=== PATIENT | male | born 1935 ===

== ENCOUNTER 2020-09-14 14:47 | Outpatient (RCR) | payer MEDICARE, OTHER, SELFPAY ==
--- NOTE | 2020-09-14 17:06 | ST.OPIE ---
Visit Care Team Role Provider Type Omer Bello MD Attending Provider Non-Staff Family Provider Primary Care Provider Referring Provider Specialty: Medical Address: [address] [place] [address], [place], [place], [facility] Email: Speech-Language Pathology Initial Evaluation [employer]INTAINER Clinical Swallow Evaluation Start: 09/14/20 15:29 Freq: Status: Active Protocol: Document 09/14/20 15:29 ARIELLE (Rec: 09/14/20 16:34 ARIELLE [id number]) Clinical Swallow Evaluation Session Time Visit Start Time 15:30 Visit Stop Time 16:25 Total Visit Minutes 55 Visit Information Visit Number Initial Evaluation Plan of Care Dates 09/14/20 - 12/15/20 Insurance Information Medicare Referral Referring Provider Dr. 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 The pt choked on a pill 3 wks ago and was taken to ER at [place]. Given his medical history, a number of tests were run including ruling out TIA. Since then, the pt underwent Barium Swallow Study at [facility], which revealed normal esophageal function. The pt feels he is doing better but still occasionally has sticking sensation at upper right throat area, mostly when swallowing large pills and also occurring with peanut butter. Subjective Observations The pt arrived on time and provided case history. Reported by Patient Current Diet Regular,Thin liquids Baseline Feeding Method Independent in self-feeding Patient Questionnaire No Objective Assessment Mental Status Alert,Responsive,Cooperative Oral Integrity WFL Dentition Within normal limits,Dentures or partials present,Adequate denture or partial fitting Lip Function Within normal limits Observation of Lips at Rest Symmetrical Pucker Within normal limits Lip Retraction Left sided weakness/Drooping Alternating Pucker/Lip Retraction Within normal limits Tongue Function Within normal limits Observations of Tongue at Rest Within normal limits Tongue Protrusion Deviates to the right Tongue Retraction Within normal limits Tongue Lateralization Within normal limits Jaw Function Within normal limits Observations of Jaw at Rest Within normal limits Jaw Opening Within normal limits Jaw Closing Within normal limits Jaw Lateralization Within normal limits Jaw Protrusion Within normal limits Jaw Retraction Within normal limits Hard/Soft Palate Function Within normal limits Observations of Hard/Soft Palate Within normal limits Nasality Within normal limits Phonation Within normal limits Respiratory Sufficiency Within normal limits Comment The pt sleeps with supplemental oxygen via nasal cannula but does not require supplemental oxygen during daytime activities. Adequate hyolaryngeal elevation but mildly reduce anterior propulsion observed via palpation. Food and Liquid Trials Position During Assessment Upright (90 degrees) Liquids Trialed Thin Solids Trialed Puree,Mechanical Soft,Regular Administration Type Tea spoon,Controlled cup sip, Self-feeding Oral Impairment Within normal limits Oral Phase Comments Mastication appears to be predominantly anterior munching. Pharyngeal Impairment Mildly impaired Pharyngeal Phase Comments Frequent throat clearing occurred during and for a significant time after oral trials. The pt denied sticking sensation or sense of airway penetration but did acknowledge that he was frequently clearing his throat . He was not sure why he felt the need to throat clear. His voice remained clear throughout the evaluation. Fatigue/Endurance Endurance WNL Strategies Attempted Chin tuck,Head rotation Response/Comments No significant benefit. Recommended pt use head turn to right with or without chin tuck when swallowing pills to see if it helps. Also recommended he split large tablets if able (referred him to consultation with MD or Pharmacist first) and/or consume with carrier, which he stated he often does. Findings Swallowing Function Pharyngeal phase dysphgia Severity of Swallow Impairment Mildly impaired Contributing Factors to Swallow Reduced laryngeal excursion, Impairment Impaired airway protection Comments Suspect mild pharyngeal residue Prognosis Good Based on Cognitive status,Family support,Duration of symptoms/ severity,Other (comment) Comment The pt presents with mild pharyngeal dysphagia characterized by occasional pharyngeal sticking sensation at right side and frequent throat clearing. These symptoms, in conjunction with reduced hyolaryngeal anterior excursion, indicate possible decreased epiglottic inversion and airway closure allowing for penetration of bolus into the laryngeal vestibule. Also suspect presence of mild pharyngeal residue, given the pt's consistent and lasting throat clearing. However, much of the throat clearing continued well after oral trials were stopped. Question if pt is unable to clear penetrated substances or if throat clearing may be habitual. Unable to fully assess without instrumental evaluation; however, the pt has undergone x-ray numerous times and expressed desire to avoid additional exposure if possible. Therefore, MBSS is not recommended at this time. Will continue with dysphagia therapy targeting exercise and safety precautions for now. The pt was educated on assessment results and trained in compensatory swallow strategies, general aspiration precautions, and exercises targeting airway closure and pharyngeal clearance. He returned demonstration of all exercises, demonstrating and verbalizing understanding. Because the pt is at high risk of COVID-19 d/t comorbidities and age, and because he lives on [facility], agreed to attempt to limit clinical visits if possible. Will f/u in 2-3 wks. Impact on Safety and Functioning Risk for aspiration Recommendations Instrumental Assessment No Swallowing Treatment Yes Frequency Up to 5 visits Duration over 2 mos Recommended Solids Regular Recommended Liquids Thin Safety Precautions/Swallowing Reduce distractions,Remain Recommendations upright (90 degrees) during all oral intake,Upright position at least 30 minutes after meals,Small bites and sips when eating,Slow rate; swallow between bites,Multiple swallows Medication Recommendations Whole in Carrier,Other Discharge Recommendations Home,Outpatient therapy Comments Split large pills if able; trial head turn to right with/ without chin tuck Education Patient/Caregiver Education Described results of evaluation,Patient expressed understanding of evaluation, Patient expressed agreement with goals & treatment plans Goals Short-term Goals 1. The pt will follow safe swallow strategies to reduce risk of aspiration. 2. The pt will complete exercises to increase strength , coordination and ROM of swallow mechanism, improve pharyngeal clearance, and reduce risk of aspiration. Long-term Goals 1. The pt will tolerate regular textures, thin liquids , and medications without s/sx of aspiration or sticking sensation, as measured by pt report and clinical judgment.
--- NOTE | 2021-01-03 15:38 | ST.OPDS ---
Visit Care Team Role Provider Type Omer Bello MD Attending Provider Non-Staff Family Provider Primary Care Provider Referring Provider Address: [address] [place] [address], [place], [address] BOOM TENDER Treatment Note BOOM TENDER Treatment Note Start: 01/03/21 15:36 Freq: Status: Active Protocol: Document 01/03/21 15:36 ARIELLE (Rec: 01/03/21 15:37 ARIELLE [id number]) Speech Pathology Treatment Note Visit Information Plan of Care Dates 09/14/20 - 12/15/20 Insurance Information Medicare Setting Treatment Setting Outpatient Care Visit Type Note Type Discharge Summary General Information General Information The pt is a now 85-yr-old male with an extensive history of heart disease since 2007 including A-fib, oblation, valve leakage, pacemaker, heart attack and mitral valve replacement. The pt choked on a pill 3 wks ago and was taken to ER at [place]. Given his medical history, a number of tests were run including ruling out TIA. Since then, the pt underwent Barium Swallow Study at [facility], which revealed normal esophageal function. The pt feels he is doing better but still occasionally has sticking sensation at upper right throat area, mostly when swallowing large pills and also occurring with peanut butter. Subjective Observations/Patient Presentation This pt was last seen for intial evaluation 09/14/20 and has not returned for therapy. He is discharged at this time . Chief Complaint(s) Swallowing Objective Short Term Goals 1. The pt will follow safe swallow strategies to reduce risk of aspiration. 2. The pt will complete exercises to increase strength , coordination and ROM of swallow mechanism, improve pharyngeal clearance, and reduce risk of aspiration. Jail Goals 1. The pt will tolerate regular textures, thin liquids , and medications without s/sx of aspiration or sticking sensation, as measured by pt report and clinical judgment. Plan Therapy Recommendations Discharge from Speech Therapy
== END 2021-01-05 07:52 ==
LOC: SP 14:47
PROVIDERS: Family Provider Student in an Organized Health Care Education/Training Program; PCP Student in an Organized Health Care Education/Training Program; Referring Provider Student in an Organized Health Care Education/Training Program; Visit Provider Student in an Organized Health Care Education/Training Program
DX: T17.308D Unspecified foreign body in larynx causing other injury, subsequent encounter (principal)
CPT/HCPCS: 92610

== ENCOUNTER → 2023-01-23 12:30 | Outpatient (CLI) | payer MEDICARE, OTHER, SELFPAY ==
--- NOTE | 2023-01-23 | DI.RAD.S_ITS ---
PROCEDURE: FL BARIUM SWALLOW W SPEECH INDICATIONS: Pneumonitis due to inhalation of food and vomit COMPARISON: None. TECHNIQUE: Examination was conducted in conjunction with speech pathology per standard protocol. In the lateral projection, filming was performed of the patient swallowing. AP projection filming may also be performed with patient swallowing. COMPARISON: FINDINGS: Function: The oral preparatory phase appears normal, with proper containment. The subsequent oral propulsive phase, pharyngeal phase, and esophageal phase of swallowing also appear normal with all proffered substances. Trace laryngeal penetration. No laryngotracheal aspiration. There is vallecular pooling with different consistencies. Morphology: No cricopharyngeal bar is identified. No cervical esophageal webs. No Zenker's diverticulum. No strictures. IMPRESSION: 1. Trace laryngeal penetration but no lizandro aspiration. 2. Vallecular pooling. 3. Please see separate speech pathologist's report. Dictated by: Kyle Watts M.D. on 01/23/2023 at 15:20 Approved by: Kyle Watts M.D. on 01/23/2023 at 15:23
--- NOTE | 2023-01-23 17:15 | ST.SWALLOW ---
Visit Care Team Role Provider Type Omer Bello MD Family Provider Non-Staff Primary Care Provider Specialty: Medical Address: [address] [place] [address], [id number] Email: Jacob Avery DO Attending Provider Non-Staff Referring Provider Specialty: Family Practice Address: [address] [place] [address], [id number] Email: Modified Barium Swallow Study SODA DISPENSER Modified Barium Swallow Study Start: 01/23/23 15:16 Freq: Status: Active Protocol: Document 01/23/23 15:17 LNK (Rec: 01/23/23 17:15 LNK [id number]) Modified Barium Swallow Study Total Time Visit Start Time 13:30 Visit Stop Time 14:15 Total Visit Minutes [address] Bello Reason for Referral dysphagia Setting Setting Outpatient Care Patient Information Identification Type Name,Date of Patient History Pt is an 87 year old male seen for a MBSS secondary to choking during meals at the referral of his physician. Pt was seen for outpatient swallow therapy in this clinic ( Rehab Department) and was discharged on 01/03/21. According to those records, the pt choked on a pill in November 2020 ER at [place]. The pt then underwent Barium Swallow Study at [facility], which revealed normal esophageal function. Today the pt reported that he was referred for a Modified Barium Swallow Study at the referral of his physician because he recently had a choking episode while eating. The pt did not remember if he choked on liquids or solids. Subjective Observations Pt was seated in the fluoroscopy chair with directions and procedures described for him. He indicated that he understood and agreed to proceed. Patient Positioning Position View Lat-A/P Imaging Lateral View Textures Administered Trials Presented Thin Liquid via Spoon,Thin Liquid via Cup,Pudding Thick Liquid via Spoon,Regular Textures,Barium Tablet Oral Phase Source: MBSIMP (TM) (C) Bolus Specific Scoring Grid Lip Closure WFL Tongue Control During Bolus Hold WFL Bolus Prep/Mastication WFL Bolus Transport/Lingual Motion WFL A/P Lingual Propulsion Delay No Oral Residue Minimal Impairment Residue Clearing Minimal Impairment Nasal Regurgitation No Additional Oral Phase Observations Pt's OME and DKS were observed to be ENL for form and function. ORAL PHASE: Pt was observed to have good bolus control, mastication and adequate A/P transition to the pharynx. Minimal oral residue was observed. Pharyngeal Phase Source: MBSIMP (TM) (C) Bolus Specific Scoring Grid Delayed Initiation of Pharyngeal Swallow Yes: permature spillage to the valeculla pre swallow across all trials Soft Palate Elevation No Impairment (WNL) Tongue Base Strength/Range of Motion Moderate Impairment Residue Along the Tongue Base Yes: Base of tongue residue was noted across all trials Clearance of Residue Along Tongue Base Moderate Impairment Laryngeal Elevation Minimal Impairment Anterior Hyoid Movement Moderate Impairment Epiglottic Range of Motion Moderate Impairment Vallecular Residue Yes: Across all trials; did not clear with subsequent trials Clearance of Vallecular Residue Moderate Impairment Laryngeal Vestibular Closure Mild Impairment Pharyngeal Stripping Wave Mild Impairment Posterior Pharyngeal Wall Residue Yes Clearance of Posterior Pharyngeal Wall Mild Impairment Residue Upper Esophageal Sphincter Opening Moderate Impairment Residue in the Pyriform Sinuses Yes Clearance of Residue in the Pyriform Mild Impairment Sinuses Esophageal Clearance Upright Position Minimal Impairment Pharyngoesophageal Backflow Observed No Additional Pharyngeal Phase Observations Base of tongue appeared to be weak with reduced ROM negatively impacting hyolaryngeal elevation and movement, epiglottic inversion and resulting in pooling within the epiglotis and pyriform sinuses following trials. The epiglottis did not invert completely.; The epiglottis was observed to be horizontal with the tip of the epiglottis against the posterior pharyngeal wall. This resulted in significant pooling at the base of tongue and in the epiglottis. Pooling was also noted in the pyriform sinuses. As a result, the closure of the laryngeal vestibule was weak allowing for laryngeal penetration x6 with contrast visible below the folds despite efforts to clear (PAS score=7). penetration was observed to flow from the residual in the valeculla and the pyriform sinuses with subsequent swallow attempts. Pt did not reflexively cough during the MBSS. He was cued to cough, which was minimally effective. Posterior pharyngeal wall contraction was diminished affecting the bolus control to the UES. The extension and duration of the UES appeared to be restricted as the pt was unable to swallow the semi- solid and solid textures in one swallow. Several swallows were required to clear the UES. A/P View Textures Administered Trials Presented Thin Liquid via Cup,Barium Tablet A/P View Observations Residue Observed Valleculae Right,Valleculae Left Esophageal Function WFL Esophageal Clearance Upright Position WFL Additional Observations . Clinical Impressions Dysphagia Type pharyngeal phase dysphagia Patient Appropriate for Therapy Yes: Pt reported that he does not want to travel from [place] for therapy Recommendations Diet Liquids Order Thin Diet Order Regular Medication Recommendation As Tolerated,Whole in Carrier, Crushed in Carrier Aspiration Precautions Recommended Precautions Upright at 90 Degrees, Alternate Liquids/Solids, Frequent Rest Periods,Small Bites/Sips,Liquids from Cup Treatment Plan Therapy Recommendations Outpatient Speech Therapy,Base of Tongue Exercises, Compensatory Strategy Education Additional Therapy Recommendations Pt reported that he does not want to travel from [place] for therapy Compensatory Strategies Recommendations Liquids from Cup,Small Bites and Sips,Alternate Liquids/ Solids Additional Compensatory Strategies Discussed the need to drink Recommended more liquids during meals to clear residue. Additional Recommendations/Comments pt education was provided with areas of concern shown to the pt following MBSS. Pt indicated he understood. he agreed to drink more liquids during meals.
== END ==
PROVIDERS: Family Provider Student in an Organized Health Care Education/Training Program; PCP Student in an Organized Health Care Education/Training Program; Referring Provider Family Medicine; Visit Provider Family Medicine
DX: J69.0 Pneumonitis due to inhalation of food and vomit (principal)
CPT/HCPCS: 74230; 92611